=== PATIENT | female | born 1965 | race Caucasian/White ===

== ENCOUNTER 2023-03-17 11:06 | Emergency (ER) | payer MEDICAID ==
[~2023-03-17] VITALS: Ht 157.5 cm; Wt 75.0 kg
[2023-03-17 11:14] VITALS: BP 152/88; PULSE 106; RESP 16; TEMP 97.9; O2SAT 94
== END 2023-03-17 15:19 | disposition home or self-care (01) ==
LOC: ER 11:08
DX: M79.672 Pain in left foot (principal); M79.671 Pain in right foot; Z59.00 Homelessness unspecified
CPT/HCPCS: 99283